=== PATIENT | male | born 1965 | race Caucasian/White ===

== ENCOUNTER 2025-09-06 16:12 | Inpatient (IN) | payer OTHER, SELFPAY ==
[2025-09-06] VITALS (20 sets, daily range): BP systolic 146–194; BP diastolic 96–142; BMI 26.6; BMI 24.6
--- NOTE | 2025-09-06 12:11 | ED.GENMED ---
History of Present Illness
General
Chief Complaint: Withdrawal Symptoms
Time Seen by Provider: 09/06/25 10:56
History of Present Illness
History of Present Illness:
60-year-old male with history of fentanyl abuse presenting for concern of withdrawal. Patient notes last fentanyl use was on Monday, 5 days ago. He has since been having tremulousness, hypertension, headache, nausea, vomiting. He reports recent
admission at a hospital in [place] for 4 to 5 days, at which point patient was in the ICU. He notes that when he got discharged, he still felt very sick which prompted him to use the fentanyl on Monday. Denies any chest pain. Does note some
difficulty breathing. Reports some visual hallucinations. Denies any fever. Denies additional acute medical complaints
Phy Exam
Physical Exam
Physical Exam:
General: Well-appearing, no clinical signs of dehydration, nontoxic and in no acute distress
HEENT: protecting airway, pupils equal and reactive
Neck: appears supple
CV: Tachycardic, regular rhythm, no evidence of cyanosis
Resp: No accessory muscle use, no increased work of breathing, lungs clear to auscultation bilaterally
Abd: Soft and non-distended, no tenderness to palpation
Extremities: No deformities, no swelling, no erythema, pulses and sensation intact
Neuro: alert, no focal neurologic deficit. Tremulousness
: deferred
Rectal: deferred
Psych: Normal affect
Skin: Intact
Course
Orders/Labs/Results
Orders:
Orders
09/06/25 10:40
EKG [Electrocardiogram (*1)] Urgent
Reason for Study: Tachycardia
09/06/25 10:41
EKG- Treatment ONCE
09/06/25 11:12
Fentanyl, Urine Urgent
Urinalysis Reflex To Culture Urgent
Date Specimen was Collected: 09/06/25
Time Specimen was Collected: 11:18
Urine Drug Abuse Screen Urgent
Date Specimen was Collected: 09/06/25
Time Specimen was Collected: 11:18
0.9% Sodium Chloride 1000 ml [Nss] 1,000 ml IV BOLUS
Labetalol HCl [Trandate] 10 mg IV NOW STA
diazePAM [Valium Injection] 5 mg IV NOW STA
09/06/25 11:13
CT Head W/o Iv Contrast Urgent
Comment:
Reason For Exam: headache, hypertension
09/06/25 12:37
Alcohol Urgent
Amylase Urgent
Complete Blood Count/With Diff Urgent
Comprehensive Metabolic Panel Urgent
Comment: ADD ON
09/06/25 13:39
Add On- LAB Urgent
Tests Added?: CMP
Abnormal Lab Results
09/06/25
12:37
RBC 4.58 L 10^6/uL
(4.70-6.10)
Hgb 12.5 L g/dL
(13.0-18.0)
Hct 38.6 L %
(39.0-52.0)
MCHC 32.4 L g/dL
(33.0-37.0)
RDW 16.1 H %
(11.5-14.5)
09/06/25 12:37
09/06/25 12:37
Vital Signs
Initial and Last Documented VS:
Initial Vital Signs
Temp Pulse Resp BP Pulse Ox
98.1 F 144 16 179/120 97
09/06/25 10:35 09/06/25 10:35 09/06/25 10:35 09/06/25 10:35 09/06/25 10:35
Last Documented Vital Signs
Temp Pulse Resp BP Pulse Ox
98.6 F 84 16 186/117 98
09/06/25 14:00 09/06/25 14:00 09/06/25 14:00 09/06/25 14:00 09/06/25 14:00
MDM/Problems Addressed
MDM/Problems Addressed:
60-year-old male with history of fentanyl abuse presenting for concern of withdrawal. Vital signs on arrival significant for hypertension and tachycardia.
On exam, patient does appear to be in withdrawal, tremulous, hypertensive. Currently normal mental status. Patient complaining of headache. No focal neurologic deficits, however in setting of headache and patient's hypertension, will obtain CT
head. Will also screen with laboratory analysis. Patient notes overall decreased p.o. intake. Will assess for any significant signs of dehydration or electrolyte derangement. Will treat patient with IV fluids, Valium, labetalol and reassess for
any type of improvement.
14:20 - Patient's labs are relatively unremarkable. Heart rate has improved after Valium, however still hypertensive. Notes interval improvement in symptoms, still tremulous. At this time feel patient warrants admission for acute drug withdrawal
for continued cardiac monitoring and symptomatic therapy
*Pulse Oximetry
SaO2: 98
Oxygen Mode of Delivery: Room air
Patient hypoxic: no
*EKG
Interpreted by ED Provider?: Yes
EKG Intrepretation Date: 09/06/25
EKG Intrepretation Time: 12:14
Interpretation: abnormal
Comparison EKG: no comparison EKG present
Heart Rate: 126
Rate: tachycardiac
Rhythm: sinus
Rosie: normal axis
Interval: normal interval
QRS Pattern: normal QRS
Ischemia: non-specific ST changes
*Critical Care Note
Total Time (30-74mins, 75-104mins- exclusive of procedures): Not Applicable
ED Attending Note
-
Portions of this chart may have been created with voice recognition software.� Occasional wrong word or��sound alike� substitutions may have occurred due to the inherent limitations of voice recognition software.
Discharge Plan
Departure
Referrals:
Sascha Moise DO [Family Provider, [facility]]
Interventions
Interventions:
*Risk Screen - Suicide Last Done: 09/06/25 10:35
*General Assessment Last Done: 09/06/25 11:19
*Neglect/Abuse Screening Last Done: 09/06/25 10:35
*ED- Fall Risk Assessment Last Done: 09/06/25 11:19
ED- Neurological Assessment Last Done: 09/06/25 11:19
ED-Psychological Assessment Last Done: 09/06/25 11:19
Discharge Date and Time
Print Language: ALBANIAN
[2025-09-06] MEDS: NSS 1000 IV (12:39)
[2025-09-06] MEDS: VALIUM INJECTION 5 MG IV ×2 (12:40→14:28)
[2025-09-06] MEDS: TRANDATE 10 MG IV ×2 (12:41→21:34)
[2025-09-06 12:48] LABS: Hematocrit 38.6 % (39.0-52.0); Hemoglobin 12.5 g/dL (13.0-18.0); Mean Corp Hgb Conc. 32.4 g/dL (33.0-37.0); Mean Corpuscular Volume 84.3 fL (80.0-94.0); Nucleated Red Blood Cells % 0 % (-); Platelet Count 395 10^3/uL (130-400); Red Cell Dist. Width 16.1 % (11.5-14.5)
[2025-09-06 13:34] LABS: Amylase 55 U/L (30-110)
[2025-09-06 13:53] LABS: ALT (SGPT) 17 U/L (0-50); AST (SGOT) 21 U/L (17-59); Albumin 3.9 g/dl (3.5-5.0); Alkaline Phosphatase 79 U/L (38-126); Blood Urea Nitrogen 19 mg/dl (9-20); Calcium 9.5 mg/dl (8.4-10.2); Carbon Dioxide 23 mmol/L (22-30); Chloride 107 mmol/L (98-107); Estimated Creatinine Clearance 103 ml/min; Glucose 98 mg/dl (70-99); Potassium 4.2 mmol/L (3.5-5.1); Sodium 137 mmol/L (135-145); Total Protein 7.2 g/dl (6.3-8.2); eGFR > 60.00
--- NOTE | 2025-09-06 14:36 | HPS.HSE ---
Addendum entered and electronically signed by Lizzette Avina MD 09/06/25 16:30:
This is an addendum to H&P written by Liss Still on 09/06/2025. �Patient seen and examined independently with resident.
60-year-old male past medical history of chronic hip pain, hypertension, fentanyl/xylazine use, vaping use here for drug withdrawal.
He was admitted at [facility] for fentanyl/xylazine withdrawal and was intubated and discharged 10 days ago and discharged on Suboxone 8 mg twice daily and clonidine 4 times daily. �He did not feel like the medications helped and started
taking fentanyl 4 days ago. �He is having symptoms of tremors, anxiety, headaches, blurry vision, shortness of breath, dizziness. �1 episode of vomiting and took Suboxone and felt worse.
Vital signs show blood pressure up to 183/119. �Tachycardia up to 130. �EKG unremarkable.
Alcohol level negative.
CT head shows no acute abnormality.
IV fluids. �Patient with fentanyl/potential xylazine withdrawal. �Will initiate buprenorphine microdosing protocol. �As needed clonidine, as needed Xanax. �UDS pending.
Patient with also left calf subcutaneoous mass and tenderness starting few weeks ago. No history of foreign body, could be subcutaneous mass vs varicose vein. Outpatient follow up.�
Original Note:
Family Physician
-
Family Physician: Sascha Moise
Chief Complaint
-
Opioid withdrawal
History of Present Illness
60-year-old male with history of hypertension , fentanyl abuse presenting with withdrawal symptoms. He was recently admitted to the ICU/was intubated at [place] for fentanyl/xylazine intoxication. He was discharged on Suboxone 8 mg, twice daily,
clonidine 0.3, 4 times daily. And when he got discharged he felt sick, felt his Suboxone dose was not helping him and started using fentanyl again. Last dose of fentanyl on Monday. Patient reports his last fentanyl use 4 days ago, 09/02/2025.
He felt sick, started having tremors, nausea, anxiety, generalized body aches/discomfort, headaches, blurry vision and started overdosing on his Suboxone. He reports taking 40 mg of Suboxone yesterday. All his symptoms have worsened, threw up
today a.m. at around 2:00 and took his last dose of Suboxone 8 mg after that.
ED course�on arrival BP 179/120, Pulse�144, afebrile. Normal white count, hemoglobin�12.5, normal renal function, normal LFTs. Toxicology pending.
He was given labetalol, Valium, and was started on IV fluids.
Patient had headaches, was hypertensive CT scan was done and was reported negative for any intracranial abnormality.
Medical History
Past Medical History
Past Medical History: Reports HTN
Past Surgical History: Reports None
Social History
Tobacco: Smoker
Alcohol: None
Drug: Narcotics
Personal: Single
Living: Alone
Employment: Employed
Family History
Family History: Not pertinent
Allergies / Home Medications
Allergies reflects when Allergies were last updated in [facility].
Home Medications with original date entered in [facility]
Allergy/Medication List:
Allergies
Allergy/AdvReac Type Severity Reaction Status Date / Time
Penicillins Allergy Unknown Verified 09/06/25 10:35
Home Medications
buprenorphine 8 mg-naloxone 2 mg sublingual film 1 film sublingual BID 09/06/25
clonidine HCl 0.3 mg tablet 0.3 mg PO Q8HPRN PRN withdrawal 09/06/25
metoprolol tartrate 25 mg tablet 12.5 mg PO BID 09/06/25
therapeutic multivitamin 1 tab PO DAILY 09/06/25
trazodone 50 mg tablet 50 mg PO HSPRN PRN sleep 09/06/25
Review of Systems
-
A 12 point ROS was completed and negative except as noted: Yes
Physical Exam
Vital Signs
Vital Signs
Temp Pulse Resp BP Pulse Ox
98.6 F 95 21 175/120 98
09/06/25 14:00 09/06/25 14:30 09/06/25 14:30 09/06/25 14:28 09/06/25 14:30
Physical Exam
General: Comfortable
HEENT: NormoCephalic
Respiratory: Clear
Cardiac: S1/S2 and Regular Rhythm
GI: Soft, Non Distended, Normal Bowel Sounds and Tender (Mild tenderness in the epigastric region)
Musculoskeletal: Other (Right calf with hard, mobile, tender lump of size 2 x 2 cm)
Skin: Warm and Dry
Neuro: Awake, Alert, Oriented and AO x 3
Psych: Calm
Laboratory Results
-
09/06/25 12:37
09/06/25 12:37
Laboratory Results
Total Bilirubin 0.5 mg/dl (0.2-1.3) 09/06/25 12:37
AST 21 U/L (17-59) 09/06/25 12:37
ALT 17 U/L (0-50) 09/06/25 12:37
Alkaline Phosphatase 79 U/L (38-126) 09/06/25 12:37
Impression/Plan
-
IMPRESSION:
60-year-old male presenting with symptoms of opioid withdrawal.
PLAN:
#Opioid withdrawal
Patient is actively withdrawing at presentation in the ER
s/p 2 doses of Valium and 1 labetalol 10 mg
Patient still hypertensive.
EKG with sinus tachycardia
Electrolytes normal
Will initiate buprenorphine micro dosing
IV fluids
Will start Xanax
Start as needed clonidine
Monitor telemetry
Urine toxicology pending, will follow
Blood alcohol negative
#Hypertension
Continue clonidine
Continue metoprolol
#GERD
Continue pantoprazole 40 mg, daily
Diet�low-sodium
DVT prophylaxis�Lovenox
Full code
--- NOTE | 2025-09-06 16:11 | EDCM ---
CM reviewed chart and met with pt bedside in ED. Lives alone in 1 story home, pt states it is a twin home, daughter lives in the other half. 3-4 ED.
Independent in ADLs, personal care and ambulation. No assistive device, holds on to furniture and villatoro when moving around the house.
Confirms he does not have health insurance, states he is paying $400 a month for his recent [facility] stay.
Offered [facility], he declined at this time but may reconsider while he is here.
No hx VN or SNF, states he has never been to drug rehab, states 'I don't think it would work for me'
PCP: Dr Mijares at [facility]
Pharmacy: [facility]
CM will continue to follow for all discharge planning needs.
--- NOTE | 2025-09-06 18:11 | PTCARENOTE ---
Received pt from ED via stretcher. Stretcher pulled in next to bed, x1 assist to bed. bus driver/monitor placed. AAOx3, flat. Assessed and oriented to room. Weight, height, and vitals obtained. Bed alarm placed. Medications sent to pharmacy to be
stored. Pt instructed to call for dinner. Will continue to monitor.
[2025-09-06] MEDS: LOVENOX 40 MG SC (18:22)
[2025-09-06] MEDS: OXYCONTIN (CONTROLLED RELEASE) 40 MG PO ×2 (18:22→23:00)
[2025-09-06] MEDS: BELBUCA 300 MCG BUCCAL ×2 (18:22→22:52)
[2025-09-06] MEDS: LOPRESSOR 12.5 MG PO (20:28)
[2025-09-06] MEDS: XANAX 0.5 MG PO (20:29)
[2025-09-06] MEDS: BELBUCA BUCCAL (20:36)
[2025-09-06] MEDS: CATAPRES 0.1 MG PO (22:51)
[2025-09-06 23:26] LABS: Urine Character Clear (Clear)
[2025-09-06 23:55] LABS: Urine Red Blood Cell 16-20 /HPF (0-2); Urine Squamous Cell 0-2 /LPF (Few); Urine White Cell 0-2 /HPF (0-5)
[2025-09-07] VITALS (12 sets, daily range): BP systolic 138–203; BP diastolic 88–129
[2025-09-07] MEDS: APRESOLINE 10 MG IV (00:16)
--- NOTE | 2025-09-07 01:15 | PTCARENOTE ---
Pt with manual BP of 180/100 and HR 95 at beginning of shift. COWS score 11. VIVIANA Kelly, notified of elevated BP and COWS score. Scheduled lopressor and PRN xanax administered (see MAR). Repeat BP one hour later 194/123, HR 92. ELEMENTARY READING TUTOR notified;
PRN labetalol administered (see MAR). Repeat BP one hour later 182/120, HR 93. ELEMENTARY READING TUTOR notified; PRN clonidine administered (see MAR). Repeat BP one hour later 181/117, HT 80. ELEMENTARY READING TUTOR notified; one-time order for IV hydralazine given (see MAR). One hour
post-hydralazine, BP 145/95, HR 90. Pt resting comfortably with no visible tremors. Plan of care ongoing.
[2025-09-07] MEDS: XANAX 0.5 MG PO ×3 (02:41→17:30)
[2025-09-07] MEDS: TRANDATE 10 MG IV ×2 (02:41→13:28)
[2025-09-07] MEDS: BELBUCA 300 MCG BUCCAL ×3 (03:48→12:26)
[2025-09-07] MEDS: CATAPRES 0.1 MG PO (03:51)
--- NOTE | 2025-09-07 04:55 | PTCARENOTE ---
Pt with COWS score of 19 at 0230. Manual BP of 200/114 and HR of 106. VIVIANA Kelly notified of BP and increase in score. PRN xanax and PRN labetalol administered (see JAN). An hour later, BP 161/113 and HR 88. PRN clonidine and scheduled
Belbuca administered (see JAN). BP 138/88 an hour later and HR 89. Patient resting comfortably with no visible tremors at this time. Plan of care ongoing.
[2025-09-07] MEDS: LOPRESSOR 12.5 MG PO ×2 (07:46→20:19)
[2025-09-07] MEDS: THERAGRAN 1 TABLET PO (07:46)
[2025-09-07] MEDS: OXYCONTIN (CONTROLLED RELEASE) 40 MG PO ×3 (07:46→23:15)
--- NOTE | 2025-09-07 10:10 | W.PN.HOSP.TC ---
Addendum entered and electronically signed by Eugene Veras DO 09/07/25 13:32:
Superficial venous thrombosis noted in right mid calf vein.
No DVT noted.
Continue prophylactic doses of Lovenox.
Consider repeating Doppler ultrasound in 10 to 14 days to assess for propagation.
Original Note:
Today's Communication/Plan
-
Venous Doppler ultrasound
Opioid withdrawal protocol
Assessment / Plan
Assessment / Plan
Gen-AAOx3, mild distress due to withdrawal symptoms
HEENT-NC, AT, anicteric, clear oral mm
Neck-supple
CV-reg, no M, +S1/S2
Lungs-clear B/L
Abd-soft, NT, ND
Ext-no edema
Musculoskeletal-no cyanosis, clubbing
Skin-warm and dry
Neuro-grossly non-focal
Psych-calm, cooperative
Opiate withdrawal syndrome -continue opiate withdrawal protocol. Buprenorphine microdosing.
Offered rehab for him but patient is not interested.
Hypertensive urgency -continue metoprolol, clonidine. Blood pressure uncontrolled on admission due to opioid withdrawal syndrome.
Chronic right hip arthritic pain -encouraged him to follow-up with orthopedics after discharge. Seems like this was the nidus for his initiation into the opioid realm.
He states he saw orthopedics in the past and was fearful of extensive surgery and the recovery time.
Right calf swelling -with palpable subcutaneous mass. Unclear if venous cord versus other. Doppler ultrasound ordered, rule out DVT.
Full code
Anticipated Discharge: > 48 hours
Subjective/Interval History
-
Date of Service: September 07, 2025
Patient seen and examined. Complaining of anxiety, withdrawal symptoms.
Objective Data
-
Vital Signs:
Vital Signs
Temp Pulse Resp BP Pulse Ox
97.8 F 106 19 149/108 96
09/07/25 07:00 09/07/25 09:47 09/07/25 07:00 09/07/25 09:47 09/07/25 07:00
I&O
09/06/25 09/07/25 09/08/25
06:59 05:59 06:59
Intake Total 960 / 960
Balance 960 / 960
Review of Systems
-
History Source: Patient
All other systems: Reviewed and negative
[2025-09-07] MEDS: LOVENOX 40 MG SC (17:31)
[2025-09-07] MEDS: SUBUTEX 2 MG SL ×2 (17:31→21:17)
[2025-09-08] VITALS (8 sets, daily range): BP systolic 135–185; BP diastolic 100–128; BMI 24.6
[2025-09-08] MEDS: XANAX 0.5 MG PO ×3 (02:10→19:55)
[2025-09-08] MEDS: ROXICODONE 20 MG PO (02:58)
[2025-09-08] MEDS: TRANDATE 10 MG IV ×3 (03:02→17:33)
[2025-09-08] MEDS: ZOFRAN 4 MG IV (03:02)
--- NOTE | 2025-09-08 03:16 | PTCARENOTE ---
Around 0200, Pt very anxious, restless, and HR up to 120s. COWS score of 14, PRN xanax given per order.
Around 0300, pt extremely anxious, restless, tremulous, and c/o nausea and saying his stomach 'feels like a washing machine'. Pt asking for pepcid. COWS score of 18. BP 180/120 manually, HR 102. INFORMATICS NURSE SPECIALIST notified, Tums ordered. Pt refusing tums. Asked
INFORMATICS NURSE SPECIALIST if okay to give PRN oxy w/ labetalol, stated okay to give. Instructed to give catapres if BP still elevated after PRN meds. Oxy, labetalol, and zofran given (see MAR). Call garcia within reach and plan of care ongoing.
[2025-09-08] MEDS: LOPRESSOR 12.5 MG PO ×2 (08:59→19:51)
[2025-09-08] MEDS: SUBUTEX 2 MG SL ×2 (08:59→13:52)
[2025-09-08] MEDS: OXYCONTIN (CONTROLLED RELEASE) 40 MG PO (09:00)
[2025-09-08] MEDS: THERAGRAN 1 TABLET PO (09:00)
[2025-09-08] MEDS: CATAPRES 0.1 MG PO ×3 (13:52→21:33)
--- NOTE | 2025-09-08 13:54 | W.PN.HOSP.TC ---
Today's Communication/Plan
-
clonidine
Assessment / Plan
Assessment / Plan
Gen-AAOx3, mild distress due to withdrawal symptoms
HEENT-NC, AT, anicteric, clear oral mm
Neck-supple
CV-reg, no M, +S1/S2
Lungs-clear B/L
Abd-soft, NT, ND
Ext-no edema
Musculoskeletal-no cyanosis, clubbing
Skin-warm and dry
Neuro-grossly non-focal
Psych-calm, cooperative
Opiate withdrawal syndrome -continue opiate withdrawal protocol. Buprenorphine microdosing.
Offered rehab for him but patient is not interested.
Hypertensive urgency -continue metoprolol, clonidine. Blood pressure uncontrolled on admission due to opioid withdrawal syndrome. add on standing clonidine
Chronic right hip arthritic pain -encouraged him to follow-up with orthopedics after discharge. Seems like this was the nidus for his initiation into the opioid realm.
He states he saw orthopedics in the past and was fearful of extensive surgery and the recovery time.
Right calf swelling -with palpable subcutaneous mass. Unclear if venous cord versus other. Doppler ultrasound ordered, rule out DVT.
Full code
Anticipated Discharge: 24 - 48 hours
Subjective/Interval History
-
Date of Service: September 08, 2025
No acute events overnight
Objective Data
-
Labs:
Laboratory Results
09/08/25
12:38
WBC Pending
Hgb Pending
Hct Pending
Plt Count Pending
Sodium Pending
Potassium Pending
Chloride Pending
Carbon Dioxide Pending
BUN Pending
Creatinine Pending
Glucose Pending
Calcium Pending
Total Bilirubin Pending
AST Pending
ALT Pending
Alkaline Phosphatase Pending
Vital Signs:
Vital Signs
Temp Pulse Resp BP Pulse Ox
97.9 F 102 18 172/112 98
09/08/25 11:00 09/08/25 11:00 09/08/25 11:00 09/08/25 11:00 09/08/25 11:00
I&O
09/07/25 09/08/25 09/09/25
05:59 06:59 06:59
Intake Total 960 / 960 960 / 960 120 / 120
Output Total 500 / 500
Balance 960 / 960 460 / 460 120 / 120
Review of Systems
-
History Source: Patient
All other systems: Reviewed and negative
Data Reviewed
-
CT Scan: Report Reviewed by me
Ultrasound: Report Reviewed by me
[2025-09-08 14:23] LABS: Hematocrit 43.7 % (39.0-52.0); Hemoglobin 13.4 g/dL (13.0-18.0); Mean Corp Hgb Conc. 30.7 g/dL (33.0-37.0); Mean Corpuscular Volume 90.5 fL (80.0-94.0); Nucleated Red Blood Cells % 0 % (-); Platelet Count 412 10^3/uL (130-400); Red Cell Dist. Width 16.2 % (11.5-14.5)
[2025-09-08 14:42] LABS: ALT (SGPT) 16 U/L (0-50); AST (SGOT) 21 U/L (17-59); Albumin 4.1 g/dl (3.5-5.0); Alkaline Phosphatase 68 U/L (38-126); Blood Urea Nitrogen 15 mg/dl (9-20); Calcium 9.8 mg/dl (8.4-10.2); Carbon Dioxide 27 mmol/L (22-30); Chloride 102 mmol/L (98-107); Estimated Creatinine Clearance 97 ml/min; Glucose 96 mg/dl (70-99); Potassium 4.7 mmol/L (3.5-5.1); Sodium 135 mmol/L (135-145); Total Protein 7.5 g/dl (6.3-8.2); eGFR > 60.00
--- NOTE | 2025-09-08 15:42 | CM ---
ALEIDA met with Brandon today; he is calm and reading a book. No concerns, declining [facility]. ALEIDA will check in with him tomorrow to see if he would like to consider [facility], since he had say he may reconsider.
[2025-09-08] MEDS: OXYCONTIN (CONTROLLED RELEASE) 20 MG PO ×2 (17:32→23:11)
[2025-09-08] MEDS: LOVENOX 40 MG SC (17:32)
[2025-09-08] MEDS: SUBUTEX 4 MG SL ×2 (17:32→21:33)
[2025-09-09] MEDS: XANAX 0.5 MG PO ×3 (01:56→23:10)
[2025-09-09] MEDS: ROXICODONE 20 MG PO (02:58)
[2025-09-09 03:02] VITALS: BP 150/100
[2025-09-09 05:52] LABS: Hematocrit 37.4 % (39.0-52.0); Hemoglobin 11.7 g/dL (13.0-18.0); Mean Corp Hgb Conc. 31.3 g/dL (33.0-37.0); Mean Corpuscular Volume 89.9 fL (80.0-94.0); Platelet Count 354 10^3/uL (130-400); Red Cell Dist. Width 16.0 % (11.5-14.5)
[2025-09-09 06:11] LABS: Blood Urea Nitrogen 16 mg/dl (9-20); Calcium 9.2 mg/dl (8.4-10.2); Carbon Dioxide 25 mmol/L (22-30); Chloride 104 mmol/L (98-107); Estimated Creatinine Clearance 109 ml/min; Glucose 83 mg/dl (70-99); Potassium 4.5 mmol/L (3.5-5.1); Sodium 135 mmol/L (135-145); eGFR > 60.00
[2025-09-09 07:00] VITALS: BP 158/118
[2025-09-09] MEDS: LOPRESSOR 12.5 MG PO ×2 (07:59→20:15)
[2025-09-09] MEDS: SUBUTEX 4 MG SL ×2 (08:00→13:00)
[2025-09-09] MEDS: THERAGRAN 1 TABLET PO (08:00)
[2025-09-09] MEDS: OXYCONTIN (CONTROLLED RELEASE) 20 MG PO (08:01)
[2025-09-09] MEDS: CATAPRES 0.1 MG PO ×2 (08:01→10:31)
[2025-09-09 11:00] VITALS: BP 155/117
--- NOTE | 2025-09-09 12:06 | W.PN.HOSP.TC ---
Today's Communication/Plan
-
Clonidine - BP control
Subutex microdosing
Assessment / Plan
Assessment / Plan
Gen-AAOx3, mild distress due to withdrawal symptoms
HEENT-NC, AT, anicteric, clear oral mm
Neck-supple
CV-reg, no M, +S1/S2
Lungs-clear B/L
Abd-soft, NT, ND
Ext-no edema
Musculoskeletal-no cyanosis, clubbing
Skin-warm and dry
Neuro-grossly non-focal
Psych-calm, cooperative
Opiate withdrawal syndrome -continue opiate withdrawal protocol. Buprenorphine microdosing.
Offered rehab for him but patient is not interested.
Hypertensive urgency -continue metoprolol, clonidine. Blood pressure uncontrolled on admission due to opioid withdrawal syndrome. add on standing clonidine, increase today
Chronic right hip arthritic pain -encouraged him to follow-up with orthopedics after discharge. Seems like this was the nidus for his initiation into the opioid realm.
He states he saw orthopedics in the past and was fearful of extensive surgery and the recovery time.
Right calf swelling -with palpable subcutaneous mass. DVT negative; Occlusive thrombus within a superficial vein within the right mid calf.
Full code
Anticipated Discharge: Within 24 hours
Subjective/Interval History
-
Date of Service: September 09, 2025
hypertensive, asymptomatic
Objective Data
-
Labs:
Laboratory Results
09/09/25
05:10
WBC 5.8
Hgb 11.7 L
Hct 37.4 L
Plt Count 354
Sodium 135
Potassium 4.5
Chloride 104
Carbon Dioxide 25
BUN 16
Creatinine 0.8
Glucose 83
Calcium 9.2
Vital Signs:
Vital Signs
Temp Pulse Resp BP Pulse Ox
97.7 F 105 18 155/117 98
09/09/25 11:00 09/09/25 11:00 09/09/25 11:00 09/09/25 11:00 09/09/25 11:00
I&O
09/08/25 09/09/25 09/10/25
06:59 06:59 06:59
Intake Total 960 / 960 1020 / 1020
Output Total 500 / 500
Balance 460 / 460 1020 / 1020
Review of Systems
-
History Source: Patient
All other systems: Not reviewed unless documented
Data Reviewed
-
CT Scan: Report Reviewed by me
Ultrasound: Report Reviewed by me
--- NOTE | 2025-09-09 12:22 | PN.CDI ---
CDI
- -
CDI:
Physician Documentation Request
Admit Date: 09/06/25 16:12
Dear Doctor Amari,
Patient admitted for management of Opiate withdrawal syndrome
Please specify the pattern of use, include all that apply:
- Use, with or without abuse and/or dependence
- Abuse with or without dependence
- Dependence
- other
Use of terms such as suspected, likely, concern for, or probable (associated with a specific diagnosis that is being evaluated, monitored, or treated as if it exists) are acceptable and can be coded in the inpatient setting, when documented at the
time of discharge.
Thank you,
Sofía Cristobal RN, BSN
CDI Specialist
tiger text
Please use your independent medical judgment in providing your response.
[2025-09-09 15:00] VITALS: BP 160/110
[2025-09-09] MEDS: CATAPRES 0.2 MG PO ×2 (15:55→22:22)
[2025-09-09] MEDS: SUBUTEX 2 MG SL (16:18)
[2025-09-09] MEDS: LOVENOX 40 MG SC (17:28)
[2025-09-09] MEDS: SUBUTEX 8 MG SL (20:18)
[2025-09-09 20:25] VITALS: BP 160/100
[2025-09-09 23:00] VITALS: BP 138/100
[2025-09-09] MEDS: MOTRIN 400 MG PO (23:10)
[2025-09-09] MEDS: DESYREL 50 MG PO (23:13)
[2025-09-10 03:00] VITALS: BP 119/80
[2025-09-10] MEDS: XANAX 0.5 MG PO ×4 (05:48→22:31)
[2025-09-10 05:50] LABS: Hematocrit 35.3 % (39.0-52.0); Hemoglobin 11.4 g/dL (13.0-18.0); Mean Corp Hgb Conc. 32.3 g/dL (33.0-37.0); Mean Corpuscular Volume 86.9 fL (80.0-94.0); Platelet Count 297 10^3/uL (130-400); Red Cell Dist. Width 16.0 % (11.5-14.5)
[2025-09-10 06:10] LABS: Blood Urea Nitrogen 18 mg/dl (9-20); Calcium 9.1 mg/dl (8.4-10.2); Carbon Dioxide 27 mmol/L (22-30); Chloride 105 mmol/L (98-107); Estimated Creatinine Clearance 109 ml/min; Glucose 85 mg/dl (70-99); Potassium 4.3 mmol/L (3.5-5.1); Sodium 135 mmol/L (135-145); eGFR > 60.00
[2025-09-10] MEDS: THERAGRAN 1 TABLET PO (08:00)
[2025-09-10] MEDS: CATAPRES 0.2 MG PO ×3 (08:00→22:34)
[2025-09-10] MEDS: LOPRESSOR 12.5 MG PO ×2 (08:06→20:42)
[2025-09-10] MEDS: SUBUTEX 8 MG SL ×2 (08:07→22:30)
[2025-09-10 09:07] VITALS: BMI 25.5
[2025-09-10] MEDS: SUBUTEX 2 MG SL (11:48)
--- NOTE | 2025-09-10 13:30 | W.PN.HOSP.TC ---
Addendum entered and electronically signed by Efrain Fitzpatrick MD 09/10/25 17:19:
Opiate withdrawal syndrome, with abuse and/or dependence
Original Note:
Today's Communication/Plan
-
Xanax to klonopin, increase Suboxone.
Assessment / Plan
Assessment / Plan
Gen-AAOx3, mild distress due to withdrawal symptoms
HEENT-NC, AT, anicteric, clear oral mm
Neck-supple
CV-reg, no M, +S1/S2
Lungs-clear B/L
Abd-soft, NT, ND
Ext-no edema
Musculoskeletal-no cyanosis, clubbing
Skin-warm and dry
Neuro-grossly non-focal
Psych-calm, cooperative
Opiate withdrawal syndrome -continue opiate withdrawal protocol. Buprenorphine microdosing. Switch Xanax to klonopin, increase Suboxone.
Offered rehab for him but patient is not interested.
Hypertensive urgency -continue metoprolol, clonidine. Blood pressure uncontrolled on admission due to opioid withdrawal syndrome. add on standing clonidine
Chronic right hip arthritic pain -encouraged him to follow-up with orthopedics after discharge. Seems like this was the nidus for his initiation into the opioid realm.
He states he saw orthopedics in the past and was fearful of extensive surgery and the recovery time.
Right calf swelling -with palpable subcutaneous mass. DVT negative; Occlusive thrombus within a superficial vein within the right mid calf.
Full code
Anticipated Discharge: Within 24 hours
Subjective/Interval History
-
Date of Service: September 10, 2025
BP improved; agitation improved
Objective Data
-
Labs:
Laboratory Results
09/10/25
05:12
WBC 5.5
Hgb 11.4 L
Hct 35.3 L
Plt Count 297
Sodium 135
Potassium 4.3
Chloride 105
Carbon Dioxide 27
BUN 18
Creatinine 0.8
Glucose 85
Calcium 9.1
Vital Signs:
Vital Signs
Temp Pulse Resp BP Pulse Ox
97.5 F 86 18 128/98 97
09/10/25 11:00 09/10/25 08:00 09/10/25 11:00 09/10/25 08:00 09/10/25 11:00
I&O
09/09/25 09/10/25 09/11/25
06:59 06:59 06:59
Intake Total 1020 / 1020 1060 / 1060
Balance 1020 / 1020 1060 / 1060
Review of Systems
-
History Source: Patient
All other systems: Not reviewed unless documented
Data Reviewed
-
CT Scan: Report Reviewed by me
Ultrasound: Report Reviewed by me
--- NOTE | 2025-09-10 14:10 | CS.PSYCHR ---
Consult Summary - Psychiatry
-
pt seen in consultation due to agitation, statements concerning leaving and using due to discomfort
60 yo man admitted via ED due to feeling he was withdrawing from opioids. [place] his BP was too high, found to be so, admitted to treat opioid withdrawal.
Had just left [facility] last week after 10 day ICU stay occasioned by being found down after a day and a half, in ICU intubated due to withdrawal and rhabdomyolysis. At that time declined offered rehab (as he has here) went home, felt
tremulous, and took one dose of fentanyl which took the problem away. Came her in order to get treatment before things got to that point.
Gives history of longstanding opioid use disorder, had spent time in group home for 'bad decisions' made while in drug addled state. No prior psychiatric history, denies need for rehab. States he gets his meds from his PCP, but unclear if PCP willing to
prescribe the meds he feel might help (starting with xanax.)
States that buprenorphine at current level not effective, knows if he takes fentanyl he'll feel so much better.
Worried about his blood pressure, states that there is something going on with the way his blood pressure is being addressed. 'I know you can't send me out with very high pressure, so people are only taking it after I get my meds, so you can say I'm
better. It's a business, I know that.' Unbelieving when told that the hospital does not play games like that.
States started use of opioids when tore hip lifitng equipment, given narcotics which helped, and which he decided to manage on his own by buying illicit drugs. Recognizes addiction is a problem, wants to stop.
Born and raised in [facility], attended [employer] after family moved to [place]. Parents , but close to both of them. Father is hoisting pile driving engineer, as is pt (degree from [employer].) Currently is 1099 worked due to struggel with addiction. Last
worked about 3 weeks ago. , ex- in car crash. One daughter who lives next door to him (twin home.) Close to parents and daughter, no other close relationships. No health insurance currently, had declined to provide PATHS with bank
statements due to privacy concerns, so now in payment plan with [facility].
Sleeps poorly, had one episode of panic attack which primary MD treated with xanax.
Says does not want to go to rehab due to need to work, and 'I don't need someone telling me that I use because I didn't get enough hugs.'
Dressed in street clothes, says he was told he was going home today. Upset that he is not going to be able to get the meds he gets here once he leaves, and so his BP will go up and he will need to use. 'I'm not paranoid' while he talks about
hospital arranging BPs to falsely indicate improvement.Denies suicidal thoughts ('maybe in the past') not depressed, but says he is anxious. No cognitive deficits. Insight fair, judgment only fair.
Impression: Opioid and benzo diazepine use disorder, likely panic disorder
Much time spent educating pt about role of the medications he is taking, need to have arrangements made for aftercare, and especially need to continue with Medicaid application.
Have reduce frequency of xanx, placed order for standing klonpin, increased dose of standing subutex.
Pt will consider how he will get ongoing care/med management
[2025-09-10] MEDS: KLONOPIN 1 MG PO ×2 (14:33→20:42)
[2025-09-10 15:00] VITALS: BP 147/99
[2025-09-10] MEDS: LOVENOX 40 MG SC (17:35)
[2025-09-10 19:00] VITALS: BP 132/91
[2025-09-10] MEDS: DESYREL 50 MG PO (23:10)
[2025-09-10 23:49] VITALS: BP 128/101
[2025-09-11 03:13] VITALS: BP 135/94
[2025-09-11 06:27] LABS: Hematocrit 36.6 % (39.0-52.0); Hemoglobin 11.7 g/dL (13.0-18.0); Mean Corp Hgb Conc. 32.0 g/dL (33.0-37.0); Mean Corpuscular Volume 87.1 fL (80.0-94.0); Platelet Count 299 10^3/uL (130-400); Red Cell Dist. Width 16.0 % (11.5-14.5)
[2025-09-11 06:53] LABS: Blood Urea Nitrogen 17 mg/dl (9-20); Calcium 9.0 mg/dl (8.4-10.2); Carbon Dioxide 27 mmol/L (22-30); Chloride 106 mmol/L (98-107); Estimated Creatinine Clearance 125 ml/min; Glucose 80 mg/dl (70-99); Potassium 4.4 mmol/L (3.5-5.1); Sodium 135 mmol/L (135-145); eGFR > 60.00
[2025-09-11 07:00] VITALS: BP 137/103
[2025-09-11] MEDS: CATAPRES 0.2 MG PO (08:00)
[2025-09-11] MEDS: LOPRESSOR 12.5 MG PO (08:01)
[2025-09-11] MEDS: KLONOPIN 1 MG PO (08:01)
[2025-09-11] MEDS: THERAGRAN 1 TABLET PO (08:01)
[2025-09-11] MEDS: SUBUTEX 16 MG SL (08:01)
[2025-09-11] MEDS: TYLENOL 650 MG PO (09:25)
[2025-09-11 11:00] VITALS: BP 125/87
--- NOTE | 2025-09-11 11:14 | W.PN.UPDATE ---
Update Note
Progress Note Update
patient seen chart reviewed. discussed with nursing and with dr leslie. the patient did engage in discussion about his addiction . he sees the pain of his torn right hip muscle as the cause of his addiction. he said if the pain could be relieved
he would be fine. he thought fentanyl was the answer...He said it was 'cheap' and readily available until the street supply became contaminated with other drugs. he said xylazine 'almost killed me'. he is resistant to going to rehab feels he has no
time. 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 he has no insurance and every suggestion i made he had a reason why it would not work. tried to iompress upon him that he needs a plan if he is to
succeed and as of yet he has not a plan. suggested out patient treatment but he said it doesn't help an alternative tack would be for him to seek ortho and pain mgt consult to see if he can attack his addiction from that direction again little
enthusiasm for this approach. another approach would be to try to get insurance suggested some ideas for him which were not met with enthusiasm or resolve
--- NOTE | 2025-09-11 13:09 | W.PN.HOSP.TC ---
Addendum entered and electronically signed by Efrain Fitzpatrick MD 09/12/25 15:40:
BCARES*
[id number]
Original Note:
Today's Communication/Plan
-
Clonidine
Suboxone, Klonopin
Follow-up closely with psychiatry, PCP
Assessment / Plan
Assessment / Plan
Gen-AAOx3, mild distress due to withdrawal symptoms
HEENT-NC, AT, anicteric, clear oral mm
Neck-supple
CV-reg, no M, +S1/S2
Lungs-clear B/L
Abd-soft, NT, ND
Ext-no edema
Musculoskeletal-no cyanosis, clubbing
Skin-warm and dry
Neuro-grossly non-focal
Psych-calm, cooperative
Opiate withdrawal syndrome -continue opiate withdrawal protocol. Buprenorphine microdosing. Switch Xanax to klonopin, increase Suboxone. Daycare is following. Follow-up for further prescriptions outpatient
Offered rehab for him but patient is not interested.
Hypertensive urgency -continue metoprolol, clonidine. Blood pressure uncontrolled on admission due to opioid withdrawal syndrome. add on standing clonidine, controlled
Chronic right hip arthritic pain -encouraged him to follow-up with orthopedics after discharge. Seems like this was the nidus for his initiation into the opioid realm.
He states he saw orthopedics in the past and was fearful of extensive surgery and the recovery time.
Right calf swelling -with palpable subcutaneous mass. DVT negative; Occlusive thrombus within a superficial vein within the right mid calf.
Full code
More than 30 minutes spent in discharge including
Final examination of the patient
Summarizing hospital stay
Instructions for continuing care to all relevant caregivers
Preparation of discharge records, prescriptions, and referral forms
Total time spent (in minutes): 36
Anticipated Discharge: Today
Subjective/Interval History
-
Date of Service: September 11, 2025
No acute events overnight
Objective Data
-
Labs:
Laboratory Results
09/11/25
05:59
WBC 4.3 L
Hgb 11.7 L
Hct 36.6 L
Plt Count 299
Sodium 135
Potassium 4.4
Chloride 106
Carbon Dioxide 27
BUN 17
Creatinine 0.7
Glucose 80
Calcium 9.0
Vital Signs:
Vital Signs
Temp Pulse Resp BP Pulse Ox
97.4 F 78 16 125/87 98
09/11/25 11:00 09/11/25 11:00 09/11/25 11:00 09/11/25 11:00 09/11/25 11:00
I&O
09/10/25 09/11/25 09/12/25
06:59 06:59 06:59
Intake Total 1060 / 1060 1520 / 1520
Balance 1060 / 1060 1520 / 1520
Review of Systems
-
History Source: Patient
All other systems: Not reviewed unless documented
Data Reviewed
-
CT Scan: Report Reviewed by me
Ultrasound: Report Reviewed by me
[2025-09-11] MEDS: XANAX 0.5 MG PO (13:18)
--- NOTE | 2025-09-11 14:31 | W.DS.TRANS ---
DC Summary - Parking Analyst
-
Discharge Instructions:
Discharge Diagnosis/Procedures Opiate withdrawal syndrome
Hypertensive urgency
Diet Low Cholesterol,Low Fat
Activity As tolerated
Blood Work cbc and bmp in 1 week
Instructions:
Stand-Alone Forms:
Changes to Home Medications: Yes
Discharge Medications:
DC Medications w/original date entered in [email or web address]
metoprolol tartrate 25 mg tablet 12.5 mg PO BID Blood Pressure 09/06/25
therapeutic multivitamin 1 tab PO DAILY Supplement 09/06/25
trazodone 50 mg tablet 50 mg PO HSPRN PRN sleep 09/06/25
buprenorphine HCl 8 mg sublingual tablet 8 mg sublingual HS 7 days #7 tabs 09/11/25
buprenorphine HCl 8 mg sublingual tablet 16 mg (2 x 8 mg) sublingual DAILY 7 days #14 tabs 09/11/25
clonazepam 1 mg tablet 1 mg PO BID 3 days #6 tabs 09/11/25
clonidine HCl 0.1 mg tablet 0.2 mg (2 x 0.1 mg) PO TID 30 days #180 tabs 09/11/25
clonidine HCl 0.3 mg tablet 0.1 mg (0.3333 x 0.3 mg) PO Q8HPRN PRN withdrawal #0 tabs 09/11/25
Home Medication Changes
buprenorphine HCl 8 mg sublingual tablet 16 mg (2 x 8 mg) sublingual DAILY 7 days #14 tabs 09/11/25
clonazepam 1 mg tablet 1 mg PO BID 3 days #6 tabs 09/11/25
clonidine HCl 0.1 mg tablet 0.2 mg (2 x 0.1 mg) PO TID 30 days #180 tabs 09/11/25
clonidine HCl 0.3 mg tablet 0.1 mg (0.3333 x 0.3 mg) PO Q8HPRN PRN withdrawal #0 tabs 09/11/25
Pending Results: No
[2025-09-11 15:09] VITALS: BP 140/104
--- NOTE | 2025-09-11 15:20 | PTCARENOTE ---
Pt. received discharge orders this afternoon. Pt. notified about process of discharge. Case chucker notified and discussed with patient their plan. This nurse walked into room to go over pt. medication. Pt. on his own accord ripped out his midline,
after being told an IV nurse would be around to take it out. This nurse reviewed medications with patient, all questions asked and answered. Pt. received three paper scripts. Pt. vital signs taken, pt. with elevated BP, manual taken 140/92. Pt.
walked with Nurse Bull to discharge lounge to wait for daughter to arrive.
[2025-09-11 15:25] VITALS: BP 140/92
== END 2025-09-11 15:13 | disposition home or self-care (01) | DRG 897 ==
LOC: 3 WEST ACU 16:12
PROVIDERS: Student in an Organized Health Care Education/Training Program; ADMITTING PHYSICIAN Hospitalist; ATTENDING PHYSICIAN Internal Medicine; CONSULT PHYSICIAN Psychiatry & Neurology Psychiatry; EMERGENCY PHYSICIAN Student in an Organized Health Care Education/Training Program; FAMILY PHYSICIAN Family Medicine
DX: F11.23 Opioid dependence with withdrawal (principal); I82.811 Embolism and thrombosis of superficial veins of right lower extremity; R44.1 Visual hallucinations; F17.200 Nicotine dependence, unspecified, uncomplicated; I10 Essential (primary) hypertension; K21.9 Gastro-esophageal reflux disease without esophagitis; I16.0 Hypertensive urgency
CPT/HCPCS: 70450; 80048; 80053; 80306; 80307; 81003; 81015; 82077; 82150; 85025; 85027; 93005; 93971; 96361; 96374; 96375; 96376; 99285

== ENCOUNTER 2025-09-15 06:34 | Emergency (ER) | payer SELFPAY ==
[2025-09-15] VITALS (10 sets, daily range): BP systolic 109–152; BP diastolic 75–108
--- NOTE | 2025-09-15 06:56 | ED.GENMED ---
History of Present Illness
<VIVIANA Reyes - Last Filed: 09/15/25 14:28>
General
Chief Complaint: Abdominal Pain
Source: patient
Exam Limitations: none
Time Seen by Provider: 09/15/25 06:53
Nursing documentation reviewed up to this point in time: agreed with
History of Present Illness
History of Present Illness:
Patient is a 60-year-old male with past medical history of drug abuse, chronic pain( right hip) hypertension, duodenal ulcer 4.8 cm aneurysm of the ascending aorta(imaging at [facility] ) presents to the ER for evaluation. Patient reports he was
awoken 3 hours ago because of chest pain and anxiety chest pain has since resolved. He reports he was recently was discharged from [facility] last week. He was there for an overdose. He was discharged on clonazepam as well as
clonidine metoprolol and Suboxone. He reports the Suboxone is too expensive and for his chronic right hip pain he uses fentanyl. He last used this 3 hours ago. He has been taking clonidine as well as metoprolol however reports he ran out of
clonazepam and states the clonazepam is really helping with his anxiety. He was told that he has some type of aortic problem 'possibly an aneurysm.' His primary complaint is continued right hip pain for which he smokes fentanyl for.
Pt was just adm here 09/06 until 09/11 for opiate withdrawl.
Records from [facility] reviewed show the patient was admitted for nausea and vomiting following his attempt a wean off of fentanyl. From review of records patient signed [facility] against [facility] in September 02 he was also admitted there
August 17 to for xylazine withdrawal
Phy Exam
<VIVIANA Reyes - Last Filed: 09/15/25 14:28>
General Physical Exam
General Presentation: no apparent distress
General age: appears stated age
General Skin: warm and dry
General Habitus: normal
General Mental: alert
General Hydration: appears well hydrated
Cardiovascular Exam
Cardiovascular Exam: regular rate/rhythm, no murmur and normal peripheral pulses
Pulmonary Exam
Pulmonary Exam: lungs clear and no respiratory distress
Neurological Exam
Neurological Exam: alert and oriented x3
Musculoskeletal Exam
Musculoskeletal Exam: full ROM and other (rle with strong pulses + erythema induration to right lateral hip )
Skin Exam
Skin Exam: normal color and warm/dry
Psychiatric Exam
Psychiatric Exam: normal mood/affect
Course
<VIVIANA Reyes - Last Filed: 09/15/25 14:28>
Orders/Labs/Results
Orders:
Orders
09/15/25 07:31
Electrocardiogram (*1) Urgent
Reason for Study: Abdominal Pain
EKG- Treatment ONCE
09/15/25 07:45
Cardiac Monitoring- Treatment ONCE
IV Insert/Care/Rem.- Treatment PRN
CR Chest - 2 Views Urgent
Comment:
Reason For Exam: cp
09/15/25 08:34
Basic Metabolic Panel Urgent
Complete Blood Count/With Diff Urgent
Lipase Urgent
09/15/25 09:06
Troponin I Urgent
09/15/25 11:55
Electrocardiogram (*1) Urgent
Reason for Study: Chest Pain
EKG- Treatment ONCE
09/15/25 12:47
CT Lower Ext W/o Iv Cont Rt Urgent
Comment:
Reason For Exam: redness swelling to right hip possible abscess
09/15/25 13:18
Troponin I Urgent
09/15/25 14:22
Vital Signs- Treatment ONCE
Frequency: Once
09/15/25 14:26
Cephalexin Monohydrate [Keflex] 500 mg PO NOW STA
Abnormal Lab Results
09/15/25
08:34
RBC 4.03 L 10^6/uL
(4.70-6.10)
Hgb 11.4 L g/dL
(13.0-18.0)
Hct 34.8 L %
(39.0-52.0)
MCHC 32.8 L g/dL
(33.0-37.0)
RDW 15.5 H %
(11.5-14.5)
Absolute Monos (auto) 1.0 H 10^3/uL
(0.1-0.6)
Lymphocytes % 16.5 L %
(20.5-51.1)
Monocytes % 10.7 H %
(1.7-9.3)
BUN 29 H mg/dl
(9-20)
Lipase 12 L U/L
(23-300)
09/15/25 08:34
09/15/25 08:34
Vital Signs
Initial and Last Documented VS:
Initial Vital Signs
Temp Pulse Resp BP Pulse Ox
98.2 F 74 20 128/88 100
09/15/25 06:38 09/15/25 06:38 09/15/25 06:38 09/15/25 06:38 09/15/25 06:38
Last Documented Vital Signs
Temp Pulse Resp BP Pulse Ox
98.2 F 82 18 117/83 97
09/15/25 06:38 09/15/25 14:15 09/15/25 14:15 09/15/25 14:00 09/15/25 14:15
Margin Analyst consulted with Physician
Margin Analyst consulted with physician?: Yes
Name of Physician Consulted: Dr Reyes
<Chapito Reyes, DO - Last Filed: 09/15/25 12:16>
Orders/Labs/Results
Orders:
Orders
09/15/25 07:31
Electrocardiogram (*1) Urgent
Reason for Study: Abdominal Pain
EKG- Treatment ONCE
09/15/25 07:45
Cardiac Monitoring- Treatment ONCE
IV Insert/Care/Rem.- Treatment PRN
CR Chest - 2 Views Urgent
Comment:
Reason For Exam: cp
09/15/25 08:34
Basic Metabolic Panel Urgent
Complete Blood Count/With Diff Urgent
Lipase Urgent
09/15/25 09:06
Troponin I Urgent
09/15/25 11:55
Electrocardiogram (*1) Urgent
Reason for Study: Chest Pain
EKG- Treatment ONCE
09/15/25 12:47
CT Lower Ext W/o Iv Cont Rt Urgent
Comment:
Reason For Exam: redness swelling to right hip possible abscess
09/15/25 13:18
Troponin I Urgent
09/15/25 14:22
Vital Signs- Treatment ONCE
Frequency: Once
09/15/25 14:26
Cephalexin Monohydrate [Keflex] 500 mg PO NOW STA
Abnormal Lab Results
09/15/25
08:34
RBC 4.03 L 10^6/uL
(4.70-6.10)
Hgb 11.4 L g/dL
(13.0-18.0)
Hct 34.8 L %
(39.0-52.0)
MCHC 32.8 L g/dL
(33.0-37.0)
RDW 15.5 H %
(11.5-14.5)
Absolute Monos (auto) 1.0 H 10^3/uL
(0.1-0.6)
Lymphocytes % 16.5 L %
(20.5-51.1)
Monocytes % 10.7 H %
(1.7-9.3)
BUN 29 H mg/dl
(9-20)
Lipase 12 L U/L
(23-300)
09/15/25 08:34
09/15/25 08:34
Vital Signs
Initial and Last Documented VS:
Initial Vital Signs
Temp Pulse Resp BP Pulse Ox
98.2 F 74 20 128/88 100
09/15/25 06:38 09/15/25 06:38 09/15/25 06:38 09/15/25 06:38 09/15/25 06:38
Last Documented Vital Signs
Temp Pulse Resp BP Pulse Ox
98.2 F 82 18 117/83 97
09/15/25 06:38 09/15/25 14:15 09/15/25 14:15 09/15/25 14:00 09/15/25 14:15
<VIVIANA Reyes - Last Filed: 09/15/25 14:28>
MDM/Problems Addressed
MDM/Problems Addressed:
Patient is a 60-year-old male with chronic substance abuse recently admitted here for withdrawal discharge September 11 presents here for evaluation. Patient stopped taking Suboxone which he was taking for chronic pain and used fentanyl this morning.
He reports that fentanyl is cheaper than Suboxone. He also had some chest pain and was concerned as he has a documented history of an aneurysm. Records were obtained from [facility] which show an unchanged 4.8 cm aneurysm of the ascending aorta.
Pt in no distress here and had no cp while he was here . Troponin x2 is negative. Chest neg for any acute finding. no abnormality to the mediastinum seen on chest x-ray
Patient's primary complaint is his chronic right hip pain for which he takes fentanyl for. He denies any fever/chills. on exam area is slightly indurated. ct neg for collection /abscess . Pt is afebrile , nml wbc. pt was eval by by Dr
Eric will d/c w/ keflex with outpt f/u by his pcp. In addition pt was discharged on clonazepam which helped him with his anxiety that he has for now. As discussed ED attending only give several pills due to home with I instructed patient
that he will need to follow-up with his family doctor for future instructions .
For his aneurysm he was supposed to follow-up with CT surgery at [facility] however requests CT surgery here will have him follow-up
Chronic conditions affecting care:
drug abuse, chronic hip pain
<VIVIANA Reyes - Last Filed: 09/15/25 14:28>
*Radiology
Radiology exam reviewed: radiology read reviewed
*Pulse Oximetry
Patient hypoxic: no
*Critical Care Note
Total Time (30-74mins, 75-104mins- exclusive of procedures): Not Applicable
<Chapito Reyes DO - Last Filed: 09/15/25 12:16>
*Pulse Oximetry
SaO2: 100
Oxygen Mode of Delivery: Room air
ED Attending Note
<Chapito Reyes DO - Last Filed: 09/15/25 12:16>
ED Attending Note
Patient seen and examined by attending physician: Yes
I performed the substantive portion of visit, reviewed & personally made and approve the management plan that is documented in note by myself or ALONZO.: Yes
ED Attending Note:
I evaluated patient at bedside. Initial troponin unremarkable. Although he has a history of '4.8 cm ascending aortic aneurysm' based on patient report and confirmed by review of records at [place], there was no mediastinal abnormality on today's
x-ray. He voiced concerns of acute worsening of chronic right hip pain. On exam he does have indurated tissue with overlying warmth and erythema at the posterolateral right hip. Will obtain CT imaging.
-
Portions of this chart may have been created with voice recognition software.� Occasional wrong word or��sound alike� substitutions may have occurred due to the inherent limitations of voice recognition software.
Discharge Plan
Departure
Patient Disposition: Home (Routine Discharge)
Date of Disposition: 09/15/25
Time of Disposition: 14:22
Patient with high blood pressure during this ER visit?: Yes
Condition: Fair
Covid-19: Not Applicable
Discharge Problem:
Chronic hip pain, Chest pain
Instructions: Chest Pain DCA Follow Up, BLOOD PRESSURE
Prescriptions:
New
clonazepam [Klonopin] 1 mg tablet
1 mg PO DAILY Qty: 3 0RF
cephalexin 500 mg capsule
500 mg PO Q6H Qty: 28 0RF
No Action
trazodone 50 mg tablet
50 mg PO HSPRN PRN (Reason: sleep)
therapeutic multivitamin Tablet
1 tab PO DAILY
metoprolol tartrate 25 mg tablet
12.5 mg PO BID
clonidine HCl 0.1 mg Tablet
0.2 mg PO TID 30 Days Qty: 180 0RF
clonazepam 1 mg Tablet
1 mg PO BID 3 Days Qty: 6 0RF
buprenorphine HCl 8 mg Tablet, Sublingual
16 mg sublingual DAILY 7 Days Qty: 14 0RF
buprenorphine HCl 8 mg Tablet, Sublingual
8 mg sublingual HS 7 Days Qty: 7 0RF
clonidine HCl 0.3 mg tablet
0.1 mg PO Q8HPRN PRN (Reason: withdrawal) Qty: 0 0RF
Referrals:
Sascha Moise DO [Family Provider, Family Practice]
Siva Patino MD [Active, Cardiology]
Cara Avalos MD [Active, Cardiac Surgery]
Activity Restrictions/Additional Instructions:
As discussed please take antibiotics for the redness to your right hip. Please call your family doctor for reevaluation in the next 2 days. Return if any worsening of symptoms include increasing redness hip pain fever chills. In addition because
of chest pain you were given the cardiology hotline. If you do not receive a phone call from the office please call the office to schedule an appointment as soon as possible. In addition you were given vascular surgery follow-up for your
pre-existing aneurysm.
Return if any woresning of symptoms.
Interventions
Interventions:
*Risk Screen - Suicide Last Done: 09/15/25 06:38
*General Assessment Last Done: 09/15/25 06:38
*Neglect/Abuse Screening Last Done: 09/15/25 06:38
*ED- Fall Risk Assessment Last Done: 09/15/25 06:38
*ED COVID-19 Vaccine History Last Done: 09/15/25 06:38
*ED Influenza Vaccine History Last Done: 09/15/25 06:38
Discharge Date and Time
Print Language: DOMINICAN
[2025-09-15 08:40] LABS: Hematocrit 34.8 % (39.0-52.0); Hemoglobin 11.4 g/dL (13.0-18.0); Mean Corp Hgb Conc. 32.8 g/dL (33.0-37.0); Mean Corpuscular Volume 86.4 fL (80.0-94.0); Nucleated Red Blood Cells % 0 % (-); Platelet Count 260 10^3/uL (130-400); Red Cell Dist. Width 15.5 % (11.5-14.5)
[2025-09-15 09:09] LABS: Blood Urea Nitrogen 29 mg/dl (9-20); Calcium 8.9 mg/dl (8.4-10.2); Carbon Dioxide 25 mmol/L (22-30); Chloride 103 mmol/L (98-107); Glucose 91 mg/dl (70-99); Lipase 12 U/L (23-300); Sodium 136 mmol/L (135-145); eGFR > 60.00
[2025-09-15 09:35] LABS: Troponin I 0.016 ng/ml
[2025-09-15 13:53] LABS: Troponin I 0.014 ng/ml
== END 2025-09-15 14:35 | disposition home or self-care (01) ==
LOC: EMR 06:34
PROVIDERS: Nurse Practitioner; EMERGENCY PHYSICIAN Emergency Medicine; FAMILY PHYSICIAN Family Medicine
DX: G89.29 Other chronic pain (principal); M25.551 Pain in right hip; R07.9 Chest pain, unspecified; I71.21 Aneurysm of the ascending aorta, without rupture; I10 Essential (primary) hypertension; F17.200 Nicotine dependence, unspecified, uncomplicated; F11.90 Opioid use, unspecified, uncomplicated
CPT/HCPCS: 99285; 71046; 73700; 80048; 83690; 84484; 85025; 93005